=== PATIENT | male | born 1995 | race Caucasian/White ===

== ENCOUNTER 2017-06-23 15:42 | Observation (INO) | payer OTHER ==
[~2017-06-23] VITALS: Ht 180.3 cm; Wt 81.7 kg
[2017-06-23 09:00] VITALS: BP 119/70
[~2017-06-23 15:42] MED LIST: DEXAMETHASONE SOD PHOS INJ 4 MG/ML VIAL ONE; GLYCOPYRROLATE INJ 1MG/ 5 ML SYR ONE; LIDOCAINE HCL 2% LOCAL INJ 5 ML SDV VIAL INJ ONE; METOCLOPRAMIDE HCL 10 MG/2ML VIAL ONE; NEOSTIGMINE 5 MG/5ML SYR ONE; ONDANSETRON HCL INJ 2 MG/ML VIAL ONE; PROPOFOL IV EMULSION 10 MG/ML 20 ML VIAL ONE; SEVOFLURANE INHAL SOLN 250 ML PEN BTL ONE
[2017-06-23 15:52] VITALS: BP 126/60
[2017-06-23] MEDS ORDERED: FENTANYL CITRATE/PF 100MCG/2 ML INJ ONE (15:53)
[2017-06-23] MEDS ORDERED: MIDAZOLAM HCL 2 MG/2 ML VIAL ONE (15:53)
[2017-06-23 16:00] VITALS: BP 126/60
[2017-06-23] MEDS ORDERED: PANTOPRAZOLE 40 MG 10ML VIAL IV STA (20:13)
[2017-06-23 21:36] VITALS: BP 119/70
[2017-06-23] MEDS: PANTOPRAZOLE 40 MG 10ML VIAL IV SCH (22:36)
--- NOTE | 2017-06-23 23:29 | Operative Report ---
DATE OF PROCEDURE: June 23, 2017 PROCEDURE PERFORMED: Esophagogastroduodenoscopy with esophageal foreign body removal and biopsies. REFERRING PHYSICIAN: Dr. Chay Linda INDICATIONS FOR EGD: Foreign body in esophagus. MEDICATION: Patient was done under general endotracheal anesthesia. Please see anesthesiologist note. PROCEDURE IN DETAIL: With the patient in the left lateral decubitus position and after adequate induction of general endotracheal anesthesia, the flexible fiberoptic Olympus gastroscope was introduced into the esophagus under direct visualization without any difficulty. Some longitudinal furrows were noted along with some concentric rings in the esophagus, which are compatible with eosinophilic esophagitis. A bolus of meat was noted in distal esophagus obstructing the esophagus and it was removed per polypectomy snare and jumbo forceps. After removal of the meat bolus, the scope was then reintroduced into the esophagus, and the GE junction was stenotic and ulcerated. The scope was then advanced with ease into the stomach. Mucosa overlying the antrum and the body revealed some patchy areas of erythema. Pylorus was of normal contour and shape, it was intubated with ease and the scope was advanced all the way to the second portion of the duodenum. The scope was then withdrawn slowly. Mucosa overlying the proximal second portion and the duodenal bulb appeared to be within normal limits. The scope was then withdrawn back into the stomach and retroflexed. Mucosa overlying the fundus and the cardia appeared to be within normal limits. The scope was then straightened out and the scope was subsequently withdrawn. On the way out, biopsies were obtained from the esophagus to rule out eosinophilic esophagitis. Patient tolerated the procedure well. IMPRESSION: 1. Rule out eosinophilic esophagitis. 2. Bolus of meat, distal esophagus, removed per polypectomy snare and jumbo forceps. 3. Ulcerated stricture, gastroesophageal junction. 4. Gastritis. PLAN: Follow up histology. Initiate full liquid diet. Start Protonix 40 mg IV b.i.d. Patient will need a repeat EGD with esophageal dilatation in 7 to 10 days. Job#: [id number] cc:CHAY LINDA DO
[2017-06-24] VITALS: BP 102/47
[2017-06-24] MEDS: METOCLOPRAMIDE HCL 10 MG/2ML VIAL IV SCH ×2 (00:32→05:27)
[2017-06-24 04:00] VITALS: BP 98/48
[2017-06-24 06:24] LABS: BASOPHILS % 0.3 % (0.0-1.0); EOSINOPHILS % 0.2 % (0.0-6.0); HEMATOCRIT 41.4 % (38.2-49.6); HEMOGLOBIN 14.2 g/dL (14.0-18.0); LYMPHOCYTES # (AUTO) 0.9 (1.0-3.2); LYMPHOCYTES % 8.9 % (18.0-39.1); MEAN CORPUSCULAR HEMOGLOBIN 29.8 pg (28-32); MEAN CORPUSCULAR HGB CONC 34.3 g/dL (31-35); MONOCYTES # (AUTO) 0.3 (0.2-0.8); MONOCYTES % 3.3 % (4.4-11.3); NEUTROPHILS # (AUTO) 8.9 (2.1-6.9); NEUTROPHILS % 86.9 % (38.7-80.0); PLATELET COUNT 266 x10e3/uL (140-360); RED BLOOD COUNT 4.76 x10e6/uL (4.3-5.7); RED CELL DISTRIBUTION WIDTH 12.8 % (11.7-14.4)
[2017-06-24 06:51] LABS: ALANINE AMINOTRANSFERASE 30 IU/L (0-55); ALBUMIN/GLOBULIN RATIO 1.5 (0.8-2.0); ALKALINE PHOSPHATASE 73 IU/L (40-150); ANION GAP 13.4 mmol/L (8-16); BLOOD UREA NITROGEN 18 mg/dL (7-26); BUN/CREATININE RATIO 16 (6-25); CALCIUM 9.3 mg/dL (8.4-10.2); CARBON DIOXIDE 25 mmol/L (22-29); CHLORIDE 101 mmol/L (98-107); CREATININE, SERUM 1.13 mg/dL (0.72-1.25); EST GLOMERULAR FILTRATION RATE > 60 ML/MIN (60-); GLUCOSE 128 mg/dL (74-118); POTASSIUM 4.4 mmol/L (3.5-5.1); SODIUM 135 mmol/L (136-145)
[2017-06-24 08:12] VITALS: BP 86/50
[2017-06-24] MEDS: PANTOPRAZOLE 40 MG 10ML VIAL IV SCH (09:56)
== END 2017-06-24 10:14 | disposition home or self-care (01) ==
LOC: IMCU 15:42
DX: T18.128A Food in esophagus causing other injury, initial encounter (principal); K22.2 Esophageal obstruction
CPT/HCPCS: 36415; 43239; 43247; 80053; 85025; 88305; G0378 ×2; J1100; J2001; J2250; J2405; J2765 ×2

== ENCOUNTER → 2017-07-14 | Day surgery (SDC) | payer OTHER ==
[~2017-07-14] MED LIST changes: -DEXAMETHASONE SOD PHOS INJ 4 MG/ML VIAL ONE; +FENTANYL CITRATE/PF 100MCG/2 ML INJ ONE; -GLYCOPYRROLATE INJ 1MG/ 5 ML SYR ONE; -METOCLOPRAMIDE HCL 10 MG/2ML VIAL ONE; +MIDAZOLAM HCL 2 MG/2 ML VIAL ONE; -NEOSTIGMINE 5 MG/5ML SYR ONE; -ONDANSETRON HCL INJ 2 MG/ML VIAL ONE; -SEVOFLURANE INHAL SOLN 250 ML PEN BTL ONE; +TYLENOL
--- OUTSIDE RECORDS SUMMARY | 2017-07-14 08:56 | XMS REPORT | Continuity of Care Document ---
Author Author [facility] Organization [facility] Address [address] [place] [address] Phone Unavailable Care Team Providers Care Cabin Cleaning Supervisor Name Role Phone ROOSEVELT LINDA DO PCP Insurance Providers Guarantor Mitzy Noonan Address [address] [id number] Payer [employer] Policy Number [id number] Subscriber's Name SaranFrederick Relationship 33 Father Group Number [id number] Effective Date 15 Advance Directives Directive Response Recorded Date/Time Does the patient have an advance directive? No 06/23/17 4:30pm If yes, is advance directive on file with [facility]? No 06/23/17 4:30pm If not on file with [facility] will patient provide a copy? No 06/23/17 4:30pm Do you have a Directive to Physician? No 06/23/17 3:41pm Do you have a Medical Power of Final Tester? No 06/23/17 3:41pm Do you have an out of hospital Do Not Resuscitate Order? No 06/23/17 3:41pm Do you have any special needs we should be aware of? No 06/23/17 3:41pm Do you have a support person here with you today? Yes 06/23/17 3:41pm Did patient receive Notice of Privacy Practices? Yes 06/23/17 3:41pm Did patient receive patient rights and responsibilities? Yes 06/23/17 3:41pm Problems No problem information available. Medications No medication information available. Social History Social History Problem Response Recorded Date/Time Onset Date Status Hx Psychiatric Problems No 06/23/2017 4:30pm Not Applicable Not Applicable Hx Eating Disorder No 06/23/2017 4:30pm Not Applicable Not Applicable Hx Substance Use Disorder No 06/23/2017 4:30pm Not Applicable Not Applicable Hx Depression No 06/23/2017 4:30pm Not Applicable Not Applicable Hx Alcohol Use No 06/23/2017 4:30pm Not Applicable Not Applicable Hx Substance Use Treatment No 06/23/2017 4:30pm Not Applicable Not Applicable Hx Physical Abuse No 06/23/2017 4:30pm Not Applicable Not Applicable Hospital Discharge Instructions No hospital discharge instruction information available. Plan of Care Discharge Date 06/24/17 10:14am Disposition HOME, SELF-CARE Instructions/Education Provided Soft Diet Foreign Body - Swallowed Prescriptions See Medication Section Referrals JOSE F FARRELL MD (Gastroenterology) Order Date: 7-10 Days Entered Date: 06/24/2017 7:51am Address: [address] [place] [id number] Functional Status Query Response Date Recorded Assistive Devices None June 23, 2017 4:00pm Ambulation Ability Independent June 23, 2017 4:00pm Toileting Ability Independent June 23, 2017 4:00pm Allergies, Adverse Reactions, Alerts No known allergies. Immunizations No immunization information available. Vital Signs Acute Vital Signs Vital Response Date/Time Temperature (Fahrenheit) 96.4 degrees F (97.6 - 99.5) 06/24/2017 8:12am Pulse Pulse Rate (adult) 66 bpm (60 - 90) 06/24/2017 8:12am Respiratory Rate 16 bpm (12 - 24) 06/24/2017 8:12am Blood Pressure 86/50 mm Hg 06/24/2017 8:12am Height 5 ft 11 in 06/23/2017 4:30pm Weight 180.06 lb 06/24/2017 1:21am Body Mass Index 25.1 kg/m^2 06/24/2017 1:21am Results Laboratory Results Test Name Result Units Flags Reference Collection Date/Time Result Date/ Time Comments White Blood Count 10.29 x10e3/uL 4.8-10.8 06/24/2017 6:02am 06/24/2017 6:26am Red Blood Count 4.76 x10e6/uL 4.3-5.7 06/24/2017 6:02am 06/24/2017 6: 26am Hemoglobin 14.2 g/dL 14.0-18.0 06/24/2017 6:02am 06/24/2017 6:26am Hematocrit 41.4 % 38.2-49.6 06/24/2017 6:02am 06/24/2017 6:26am Mean Corpuscular Volume 87.0 fL 81-99 06/24/2017 6:02am 06/24/2017 6: 26am Mean Corpuscular Hemoglobin 29.8 pg 28-32 06/24/2017 6:02am 06/24/2017 6:26am Mean Corpuscular Hemoglobin Concent 34.3 g/dL 31-35 06/24/2017 6:02am 06/24/2017 6:26am Red Cell Distribution Width 12.8 % 11.7-14.4 06/24/2017 6:02am 2017 6:26am Platelet Count 266 x10e3/uL 140-360 06/24/2017 6:02am 06/24/2017 6: 26am Neutrophils (%) (Auto) 86.9 % H 38.7-80.0 06/24/2017 6:02am 06/24/2017 6 :26am Lymphocytes (%) (Auto) 8.9 % L 18.0-39.1 06/24/2017 6:02am 06/24/2017 6: 26am Monocytes (%) (Auto) 3.3 % L 4.4-11.3 06/24/2017 6:02am 06/24/2017 6: 26am Eosinophils (%) (Auto) 0.2 % 0.0-6.0 06/24/2017 6:02am 06/24/2017 6: 26am Basophils (%) (Auto) 0.3 % 0.0-1.0 06/24/2017 6:0206/24/2017 6:26am IM GRANULOCYTES % 0.4 % 0.0-1.0 06/24/2017 6:02am 06/24/2017 6:26am Neutrophils # (Auto) 8.9 H 2.1-6.9 06/24/2017 6:02am 06/24/2017 6: 26am Lymphocytes # (Auto) 0.9 L 1.0-3.2 06/24/2017 6:02am 06/24/2017 6: 26am Monocytes # (Auto) 0.3 0.2-0.8 06/24/2017 6:02am 06/24/2017 6:26am Eosinophils # (Auto) 0.0 0.0-0.4 06/24/2017 6:02am 06/24/2017 6:26am Basophils # (Auto) 0.0 0.0-0.1 06/24/2017 6:02am 06/24/2017 6:26am Absolute Immature Granulocyte (auto 0.04 x10e3/uL 0-0.1 06/24/2017 6: 0206/24/2017 6:26am Sodium Level 135 mmol/L L 136-145 06/24/2017 6:02am 06/24/2017 6:52am Potassium Level 4.4 mmol/L 3.5-5.1 06/24/2017 6:02am 06/24/2017 6:52am Chloride Level 101 mmol/L 98-107 06/24/2017 6:02am 06/24/2017 6:52am Carbon Dioxide Level 25 mmol/L 22-29 06/24/2017 6:02am 06/24/2017 6: 52am Anion Gap 13.4 mmol/L 8-16 06/24/2017 6:02am 06/24/2017 6:52am Blood Urea Nitrogen 18 mg/dL 7-26 06/24/2017 6:02am 06/24/2017 6:52am Creatinine 1.13 mg/dL 0.72-1.25 06/24/2017 6:02am 06/24/2017 6:52am BUN/Creatinine Ratio 16 6-25 06/24/2017 6:02am 06/24/2017 6:52am Estimat Glomerular Filtration Rate > 60 ML/MIN 60- 06/24/2017 6:02 6:52am Ranges were taken from the National Kidney Disease Education Program and the National Kid[employer] Foundation literature. Reference ranges: 60 or greater: Normal 16-59 (for 3 consecutive months): Chronic kidney disease 15 or less: Kidney failure Glucose Level 128 mg/dL H 74-118 06/24/2017 6:02am 06/24/2017 6:52am Calcium Level 9.3 mg/dL 8.4-10.2 06/24/2017 6:02am 06/24/2017 6:52am Total Bilirubin 0.5 mg/dL 0.2-1.2 06/24/2017 6:02am 06/24/2017 6:52am Aspartate Amino Transf (AST/SGOT) 44 IU/L H 5-34 06/24/2017 6:02am 06/24 6:52am Alanine Aminotransferase (ALT/SGPT) 30 IU/L 0-55 06/24/2017 6:02am 6:52am Total Protein 6.7 g/dL 6.5-8.1 06/24/2017 6:02am 06/24/2017 6:52am Albumin 4.0 g/dL 3.5-5.0 06/24/2017 6:02am 06/24/2017 6:52am Globulin 2.7 g/dL 2.3-3.5 06/24/2017 6:02am 06/24/2017 6:52am Albumin/Globulin Ratio 1.5 0.8-2.0 06/24/2017 6:02am 06/24/2017 6: 52am Alkaline Phosphatase 73 IU/L 40-150 06/24/2017 6:02am 06/24/2017 6: 52am Procedures Procedure Status Date Provider(s) EGD with biopsy Completed 06/23/17 JOSE F FARRELL MD Encounters Encounter Location Arrival/Admit Date Discharge/Depart Date Attending Provider Discharged Inpatient (obs) [facility] 06/23/17 3:42pm 10:14am JOSE F FARRELL MD
--- NOTE | 2017-07-14 12:26 | Operative Report ---
DATE OF PROCEDURE: July 14, 2017 REFERRING PHYSICIAN: Dr. Randy Linda PROCEDURE PERFORMED: Esophagogastroduodenoscopy with esophageal dilatation and biopsies. INDICATIONS FOR EGD: History of esophageal stricture, status post removal of foreign body from esophagus. MEDICATION: Patient was done under MAC. Please see anesthesiologist's note. PROCEDURE: With the patient in the left lateral decubitus position, the flexible fiberoptic Olympus gastroscope was introduced into the esophagus under direct visualization without any difficulty. Changes of eosinophilic esophagitis were noted with longitudinal furrows and concentric rings. A minute nodule was noted at the GE junction that was biopsied. A mild stricture was noted at the GE junction that was dilated to a size 50-[place]. The scope was then advanced with ease into the stomach. Mucosa overlying the antrum revealed some patchy erythema and low-grade edema, and biopsies were obtained and sent to stain for H. pylori. Pylorus appeared to be of normal contour and shape. It was intubated with ease, and the scope was advanced all the way to the 2nd portion of the duodenum. The scope was then withdrawn slowly. Mucosa overlying the proximal 2nd portion and the duodenal bulb appeared to be within normal limits. The scope was then withdrawn back into the stomach and retroflexed. The mucosa overlying the fundus and the cardia appeared to be within normal limits. The scope was then straightened out. The stomach was decompressed. Scope was subsequently withdrawn. Patient tolerated the procedure well. IMPRESSION 1. Eosinophilic esophagitis. 2. Stricture at gastroesophageal junction, dilated to size 50-[place]. 3. Nodule at gastroesophageal junction, biopsied. 4. Gastritis, biopsied. Biopsies sent to stain for H. pylori. PLAN: Follow up histology. Continue Protonix 40 mg 1 p.o. q.a.m. a.c. Job#: [id number] cc:ROOSEVELT LINDA DO
== END | disposition home or self-care (01) ==
LOC: ENDO 08:53
PROVIDERS: ATTEND Internal Medicine Gastroenterology
DX: K20.0 Eosinophilic esophagitis (principal); K29.70 Gastritis, unspecified, without bleeding; K22.2 Esophageal obstruction; K31.89 Other diseases of stomach and duodenum; R03.0 Elevated blood-pressure reading, without diagnosis of hypertension; Z68.26 Body mass index [BMI] 26.0-26.9, adult
CPT/HCPCS: 43239; 43450; J2001; J2250